=== PATIENT | male | born 1970 | race Caucasian/White ===

== ENCOUNTER 2018-07-23 09:18 | Emergency (ER) | payer BC ==
[2018-07-23] MEDS ORDERED: ONDANSETRON 4 MG/2 ML VIAL ONE (10:13)
[2018-07-23] MEDS ORDERED: ONDANSETRON 4 MG/2 ML VIAL IVP ONE (10:16)
[2018-07-23] MEDS ORDERED: NS 1,000 ML IV ONE (10:33)
[2018-07-23] MEDS ORDERED: IOPAMIDOL (ISOVUE-300) 100 ML BTL ONE (10:47)
[2018-07-23] MEDS ORDERED: ACETAMINOPHEN 500 MG TAB PO ONE (11:12)
--- NOTE | 2018-07-23 11:19 | EDPHY ---
H & P Stated Complaint: Diarrhea, abdominal cramping, fever x 1 day Time Seen by Provider: 07/23/18 09:24 HPI/ROS: CHIEF COMPLAINT: Abdominal pain, fever, diarrhea. HISTORY OF PRESENT ILLNESS: Previously healthy 48-year-old male 1st developed this whole problem approximately 4 weeks ago. At that time he woke with a sense of nausea and vomited. Ever since then he has had a sense of abdominal distress chiefly periumbilical both right and left without being upper or lower specifically. He was seen by his PCP. Started on some Prilosec and referred to Gastroenterology and point of fact he has an appointment today at 2:00 p.m. With the nurse practitioner so she with the gastroenterology group. However he could not wait for that appointment. Over the intervening last 4-5 days he has had a substantial change in his stools. Since earlier in the year, approximately September is had some soft stools and in the fact this last month the trialed stopping coffee. However over the last 4-5 days he has had frequent loose to with watery stools never being green or black or red. No blood. Yesterday the pain seemed to little worse however in the middle night last night he woke up at 1:00 a.m. With a sense of fever with sweats but no olga rigors. His temperature was 38.5. He has since taken Advil whereas his temperature upon arrival is 37.1 P: Not worse after meals. Not worse with the bumps in the road and was able to stand up straight Q: Achiness R: No radiation, location specifically in the mid abdomen both right and left S: Moderate. At times of severe doubled him over. T: Progressive over last 4 weeks Travel: None Others: None Antibiotics: None Bad Food: None Bad Water: None Recent Surgery: None REVIEW OF SYSTEMS: Constitutional: No fever, no chills. Eyes: No discharge ENT: No sore throat. Cardiovascular: No chest pain, no palpitations. Respiratory: No cough, shortness of breath, or wheezing. Gastrointestinal: No nausea vomiting or diarrhea. No abdominal pain. Genitourinary: No hematuria or frequency. Musculoskeletal: No back pain. Skin: No rashes. Neurological: No headache. A 10 system review of systems was performed and is negative except for the noted findings in the HPI. Source: Patient Exam Limitations: No limitations - Personal History Current Tetanus/Diphtheria Vaccine: Unsure Current Tetanus Diphtheria and Acellular Pertussis (TDAP): Unsure - Medical/Surgical History Hx Asthma: No Hx Chronic Respiratory Disease: No Hx Diabetes: No Hx Cardiac Disease: No Hx Renal Disease: No Hx Cirrhosis: No Hx Alcoholism: No Hx HIV/AIDS: No Hx Splenectomy or Spleen Trauma: No Other PMH: HTN, hypothyroidism, septoplasty - Family History Significant Family History: No pertinent family hx - Social History Smoking Status: Former smoker Alcohol Use: None Drug Use: None - Physical Exam Exam: General Appearance: Alert, no distress. Initially on arrival he was afebrile at 37.1 however my exam he feels little warm whereby his temperature is 38.1. Normal phonation. No respiratory distress. Eyes: Pupils equal and round no pallor or injection. No icterus ENT, Mouth: Mucous membranes slightly dry Pharynx without erythema or exudate. TM Clear. Neck: No adenopathy. Supple. No JVD. Trachea in midline. Respiratory: There are no retractions, lungs are clear to auscultation. Cardiovascular: Regular rate and rhythm, no murmur. Abdomen: Soft, no masses, bowel sounds normal. There is tenderness present in the left lower quadrant but no rebound or guarding. Negative Rovsing sign. No hepatic tenderness. No organomegaly Femoral pulses equal. Neurological: Ox3. No motor weakness. Sensation intact. Gait nl. Skin: Warm and dry, no rashes. Musculoskeletal: No joint swelling. Extremities: No edema. Homans sign negative. No cords. Psychiatric: Normal affect. Patient is oriented X 3. There is no agitation Constitutional: Initial Vital Signs Temperature (C) 37.2 C 07/23/18 09:23 Heart Rate 104 H 07/23/18 09:23 Respiratory Rate 16 07/23/18 09:23 Blood Pressure 157/105 H 07/23/18 09:23 O2 Sat (%) 94 07/23/18 09:23 O2 Delivery Mode Room Air Allergies/Adverse Reactions: No Known Allergies Allergy (Verified 07/23/18 09:29) Home Medications: Medication Instructions Recorded Levothyroxine [Synthroid 100 mcg 02/13/14 (RX)] Lisinopril [Prinivil] 02/13/14 Bp Med 07/23/18 Hydrocodone/APAP 5/325 [Doole 1 - 2 tab PO Q6H PRN #10 tab 07/23/18 5/325 (*)] Zoloft 100mg (*) 07/23/18 Medical Decision Making ED Course/Re-evaluation: An IV was established and was given morphine for the pain was 0 for nausea. He is given a L of normal saline for IV repletion in the setting of dehydration with volume depletion The results of the CT scan reviewed with the patient as well as the woods superintendent she scheduled to see at 2:00 p.m.. We are able to obtain a small stool specimen and have sent it for GI panel At this point time there does not be appear to be any surgical emergency, and most likely dealing with any bacterial dysentery. Further issues related to the colitis could be inflammatory as well. Given his age doubtful that were dealing with ischemic colitis Differential Diagnosis: Differential diagnosis includes, but is not limited to: Gastroenteritis, dehydration, diverticulitis, hepatitis, pancreatitis, renal colic, kidney stones, ureterolithiasis, cholecystitis, appendicitis, gastritis, mesenteric adenitis, food poisoning, bacterial dysentery. - Data Points Laboratory Results: Laboratory Results 07/23/18 09:33 Microbiology Results: MICROBIOLOGY 07/23/18 14:00 Stool Gastrointestinal Tract Panel (PCR) - Final Salmonella Species Medications Given: Discontinued Medications Acetaminophen (Tylenol) 1,000 mg PO EDNOW ONE Stop: 07/23/18 11:13 Last Admin: 07/23/18 11:19 Dose: 1,000 mg Sodium Chloride (Ns) 1,000 mls @ 0 mls/hr IV ONCE ONE PRN Reason: Wide Open Stop: 07/23/18 10:34 Last Admin: 07/23/18 10:44 Dose: 1,000 mls Morphine Sulfate (Morphine) 6 mg IVP EDNOW ONE Stop: 07/23/18 10:11 Last Admin: 07/23/18 10:17 Dose: 4 mg Ondansetron HCl (Zofran) 4 mg IVP EDNOW ONE Stop: 07/23/18 10:17 Last Admin: 07/23/18 10:17 Dose: 4 mg Point of Care Test Results: Chemistry 07/23/18 10:11 POC Sodium 141 mEq/L mEq/L (135-145) POC Potassium 3.2 mEq/L L mEq/L (3.3-5.0) POC Chloride 109.0 mEq/L mEq/L (97-110) POC Total CO2 21 mEq/L L mEq/L (22-31) POC BUN 13 mg/dL mg/dL (7-23) POC Creatinine 0.9 mg/dL mg/dL (0.7-1.3) POC Glucose 121 mg/dL H mg/dL (70-100) POC Calcium 8.9 mg/dL mg/dL (8.5-10.4) POC Total Bilirubin 1.1 mg/dL mg/dL (0.1-1.4) POC AST 21 IU/L IU/L (17-59) POC ALT 29 IU/L IU/L (21-72) POC Alk Phosphatase 53 IU/L IU/L (38-126) POC Total Protein 7.1 g/dL g/dL (6.3-8.2) POC Albumin 3.4 g/dL L g/dL (3.5-5.0) Blood Gas/Lactic Acid-Venous 07/23/18 10:46 POC Lactic Acid Otilio 0.9 mmol/L mmol/L (0.7-2.1) Comprehensive Metabolic Panel CMP Collection Date 07/23/18 CMP Collection Time 09:37 Departure - Departure Disposition: Home, Routine, Self-Care Clinical Impression: Colitis Condition: Fair Instructions: Colitis (ED) Additional Instructions: Ok to use Tylenol or the pain medications: Doole (Hydrocodone) Mnoitor your Temperature as before Keep you appointment at 2 pm Call for stool results tomorrow at 11:00 am: [phone] Referrals: Martin Barnes MD [Primary Care Provider] - As per Instructions Prescriptions: Hydrocodone/APAP 5/325 [Doole 5/325 (*)] 1 - 2 tab PO Q6H PRN #10 tab PRN Reason: moderate to severe pain
[2018-07-23 11:43] VITALS: BP 137/83
[2018-07-23 11:46] LABS: PLATELET COUNT 148 10^3/uL (150-400)
== END 2018-07-23 11:33 | disposition home or self-care (01) ==
LOC: CED 09:18
DX: K52.9 Noninfective gastroenteritis and colitis, unspecified (principal)
CPT/HCPCS: 74177-PO; 80053-PO; 83605-PO; 96374; J2270; J2405; Q9967

== ENCOUNTER → 2018-12-23 | Outpatient (CLI) | payer BC | LOC: FIMAGING 13:31 | PROVIDERS: ATTEND Family Medicine | DX: D35.02 Benign neoplasm of left adrenal gland (principal); N20.0 Calculus of kidney ==